=== PATIENT | female | born 1960 | race African-American/Black ===

== ENCOUNTER 2016-03-11 21:12 | Emergency (ER) | payer OTHER ==
[~2016-03-11] VITALS: Ht 160 cm; Wt 103.5 kg
[2016-03-11 21:15] VITALS: Ht 160 cm; Wt 103.5 kg
[2016-03-11] MEDS ORDERED: morphine 4 MG/ML VIAL IV STA (22:36)
[2016-03-11] MEDS ORDERED: SOD CHLORIDE 0.9% 1,000 ML IV STA (22:36)
[2016-03-11] MEDS ORDERED: ONDANSETRON 4 MG INJ IV STA (22:36)
[2016-03-11 23:03] LABS: BASOPHIL # 0.1 10^3/ul (0.0-0.1); EOSINOPHILS % 0.2 % (0.0-7.0); HEMATOCRIT 32.9 % (37.0-47.0); HEMOGLOBIN 9.9 g/dl (12.0-16.0); LYMPHOCYTES # 1.7 10^3/ul (0.8-2.9); LYMPHOCYTES % 17.8 % (15.0-51.0); MEAN CORPUSCULAR HEMOGLOBIN 16.8 pg (29.0-33.0); MEAN CORPUSCULAR HGB CONC 30.1 g/dl (32.0-37.0); MEAN CORPUSCULAR VOLUME 55.9 fl (82.0-101.0); MEAN PLATELET VOLUME 8.8 fl (7.4-10.4); MONOCYTE # 0.4 10^3/ul (0.3-0.9); MONOCYTES % 3.8 % (0.0-11.0); NEUTROPHIL # 7.3 10^3/ul (1.6-7.5); NEUTROPHILS % 77.2 % (39.0-77.0); PLATELET COUNT 543 10^3/UL (140-440); RED BLOOD COUNT 5.89 10^6/ul (4.20-5.40); RED CELL DISTRIBUTION WIDTH 24.6 % (11.5-14.5); UNCORRECTED WBC 9.5 10^3/ul (4.8-10.8); WHITE BLOOD COUNT 9.5 10^3/ul (4.8-10.8)
[2016-03-11 23:10] LABS: CHLORIDE 93 mmol/L (97-110)
[2016-03-11 23:11] LABS: ADD UMIC YES; ALBUMIN 4.6 g/dl (3.3-4.9); SODIUM 136 mmol/L (135-144); URINE BILIRUBIN (Dip) NEGATIVE (NEGATIVE); URINE BLOOD (Dip) 1+ (NEGATIVE); URINE COLOR LT. YELLOW (YELLOW); URINE GLUCOSE (Dip) >=1000 % (NEGATIVE); URINE KETONES (Dip) 3+ (NEGATIVE); URINE LEUKOCYTE ESTERASE (Dip) 1+ (NEGATIVE); URINE NITRITE (Dip) NEGATIVE (NEGATIVE); URINE TOTAL PROTEIN (Dip) 2+ (NEGATIVE); URINE UROBILINOGEN (Dip) 0.2 E.U./dL (0.1-1.0)
[2016-03-11 23:12] LABS: POTASSIUM 4.1 mmol/L (3.5-5.1)
[2016-03-11 23:14] LABS: ALANINE AMINOTRANSFERASE 24 IU/L (13-69); ALBUMIN/GLOBULIN RATIO 0.86; ALKALINE PHOSPHATASE 161 IU/L (42-121); ANION GAP 26 (8-16); ASPARTATE AMINO TRANSFERASE 26 IU/L (15-46); BILIRUBIN,INDIRECT 0.3 mg/dl (0-1.1); BILIRUBIN,TOTAL 0.3 mg/dl (0.2-1.3); BLOOD UREA NITROGEN 11 mg/dl (7-20); CARBON DIOXIDE 21 mmol/L (21-31); CREATININE 0.59 mg/dl (0.44-1.00); GLUCOSE 272 mg/dl (70-220); TOTAL PROTEIN 9.9 g/dl (6.1-8.1)
[2016-03-11 23:15] LABS: CALCIUM 10.3 mg/dl (8.4-10.2)
[2016-03-11 23:24] LABS: SQUAMOUS EPITHELIAL CELL,UR MANY; URINE RBCS 0-2 /HPF (0)
[2016-03-11 23:39] LABS: TROPONIN-I < 0.012 ng/ml (0.00-0.12)
[2016-03-11] MEDS: LIDOCAINE/MYLANTA 40 ML BTL PO ONE ×2 (23:43→23:47)
[2016-03-11 23:47] LABS: CONDITION 1; LH ANALYZER COMMENTS 1
--- NOTE | 2016-03-12 00:10 | RADRPT ---
PROCEDURE: CT Abdomen and pelvis without contrast. CLINICAL INDICATION: Abdominal pain. TECHNIQUE: CT scan of the abdomen and pelvis was performed on the [employer] LightSpeed 6 4 slice VCT scanner. Contiguous axial images using 2.5 mm slice thickness were obtained from the blu ng bases to the ischial tuberosities without intravenous contrast. Coronal and sagittal reformatted images were also obtained. Images were reviewed on the PACS workstation. Exam CTD/vol = 23.11 mGy. Total exam DLP = 1365.14 mGy-cm. COMPARISON: None. FINDINGS: Evaluation of the lung bases demonstrates no pleural or parenchymal disease. Abdomen: The liver is normal in size. There is no focal mass or dilatation of the biliary tree. T he gallbladder is not distended. The spleen, pancreas and bilateral adrenal glands are within malcolm l limits. Bilateral kidneys are normal in size with a cyst within the mid right kidney. There is n o radiopaque renal or ureteral calculus identified. There is no hydronephrosis or hydroureter. The re is no retroperitoneal adenopathy. The abdominal aorta is of normal caliber with minimal scattere d atherosclerotic calcifications. There is no abnormal bowel wall thickening or distension. There is no bowel obstruction or free air . A normal appendix is identified. There is no diverticulosis or diverticulitis. There is no asci krystin. Pelvis: The bladder is unremarkable. The uterus is enlarged with multiple fibroids, some which are calcified. There is an intrauterine device within the lower uterine segment. There is no signific ant pelvic adenopathy or free fluid. Evaluation of the osseous structures demonstrates no suspicious lytic or blastic lesion. IMPRESSION: Markedly enlarged uterus containing multiple large fibroids. Intrauterine device within the lower uterine segment. Right renal cyst. Minimal vascular calcifications reflective of atherosclerosis. .Silvano Edwards MD, MD Date Time Electronically viewed and signed by .Silvano Edwards MD, MD on 03/12/2016 00:10 .T/
[2016-03-12] MEDS ORDERED: ONDANSETRON 4 MG INJ IV STA (00:21)
[2016-03-12] MEDS ORDERED: HYDROmorphONE 1 MG/ML SYG IV STA (00:29)
[2016-03-12] MEDS ORDERED: LABETALOL HCL 20MG INJ IV ONE (00:30)
--- NOTE | 2016-03-12 00:44 | RADRPT ---
PROCEDURE: US Abdomen (right upper quadrant). CLINICAL INDICATION: Right upper quadrant pain TECHNIQUE: Multiple real-time longitudinal and transverse images of the right upper quadrant of th e abdomen were acquired utilizing a curved array transducer. Images were reviewed on a high-resoluti on PACS workstation. COMPARISON: CT and 03/11/2015 FINDINGS: The liver is top normal size and 17.25 cm and mildly echogenic without focal mass. The gallbladder is normal. There is no pericholecystic fluid or gallbladder wall thickening or gallstones. No intr a or extrahepatic biliary dilatation is seen. The common bile duct measures 3.2 mm in maximal dimen william. T pancreas is obscured by bowel gas. No free fluid is identified. Visualized abdominal aorta and IVC are unremarkable. The right kidney measures 12.97 cm in length. There is a 2.8 the component by 2.4 simple cyst in th e lower pole of the right kidney. Right kidney is otherwise normal appearance. There is no perineph maryjane fluid collection. No hydronephrosis, mass, or calculus is seen. IMPRESSION: 1. Mildly prominent fatty liver. 2. Normal examination gallbladder without cholelithiasis or evidence for biliary obstruction. 3. Pancreas obscured by bowel gas. 4. Right renal cyst. RPTAT: HMVK .Ti Salamanca MD, Date Time Electronically viewed and signed by .Ti Salamanca MD, on 03/12/2016 00:44 .K/
[2016-03-12] MEDS ORDERED: ONDA4TAB14 PO (01:06)
[2016-03-12] MEDS ORDERED: HYDR-902 PO (01:06)
--- NOTE | 2016-03-12 01:07 | ERD ---
ER Documentation Chief Complaint Date/Time DATE: 03/12/16 TIME: 01:07 Chief Complaint ABD PAIN, DIZZINESS, SOB +N/V INTERMITTENT 3DAYS WORSE TODAY HPI Patient is a 55-year-old female with diabetes who presents with abdominal pain. She said that she thought that it might of been food that she was eating that was causing her pain. She also had vomiting. She thought she may have had a "stomach flu". However when she woke up today the pain was worse and so she came to the emergency department. She said that it started on March 05. The pain was coming and going. It is diffuse abdominal pain. She does not currently have a primary doctor. ROS All systems reviewed and are negative except as per history of present illness. Medications Home Meds Active Scripts Ondansetron (Ondansetron Odt) 4 Mg Tab.rapdis, 4 MG PO Q6H Y for NAUSEA AND/OR VOMITING, #30 TAB Prov:KELLY FONTANA MD 03/12/16 Hydrocodone/Acetaminophen (Almo 10-325 Tablet) 1 Each Tablet, 1 TAB PO Q6H Y for PAIN, #7 TAB Prov:KELLY FONTANA MD 03/12/16 Allergies Allergies: Uncoded Allergies: PCN (Allergy, Unknown, 03/11/16) PMhx/Soc Medical and Surgical Hx: pt denies Medical Hx Anesthesia Reaction: No Hx Neurological Disorder: No Hx Respiratory Disorders: No Hx Cardiac Disorders: No Hx Psychiatric Problems: No Hx Miscellaneous Medical Probl: Yes (DM) Hx Alcohol Use: No Hx Substance Use: No Smoking Status: Unknown if ever smoked FmHx Family History: No diabetes Physical Exam Vitals Vital Signs Date Time Temp Pulse Resp B/P Pulse Ox O2 Delivery O2 Flow Rate FiO2 03/12/16 01:00 85 21 139/76 96 Room Air 03/12/16 00:25 98.3 96 17 184/83 100 Room Air 03/11/16 23:00 97.6 91 18 157/68 100 Room Air 03/11/16 21:15 97.6 110 18 194/83 100 Physical Exam Const: Moderate distress secondary to pain Head: Atraumatic Eyes: Normal Conjunctiva ENT: Normal External Ears, Nose and Mouth. Neck: Full range of motion..~ No meningismus. Resp: Clear to auscultation bilaterally Cardio: Regular rate and rhythm, no murmurs Abd: Diffuse tenderness to palpation without rebound or guarding Skin: No petechiae or rashes Back: No midline or flank tenderness Ext: No cyanosis, or edema Neur: Awake and alert Psych: Normal Mood and Affect Result Diagram: 03/11/16222903/11/162229 Results 24 hrs Laboratory Tests Test 03/11/16 22:30 Alanine Aminotransferase (ALT/SGPT) 24IU/L Albumin 4.6g/dl Albumin/Globulin Ratio 0.86 Alkaline Phosphatase 161IU/L Anion Gap 26 Aspartate Amino Transf (AST/SGOT) 26IU/L Basophils # 0.110^3/ul Basophils % 1.0% Blood Morphology Comment Blood Urea Nitrogen 11mg/dl Calcium Level 10.3mg/dl Carbon Dioxide Level 21mmol/L Chloride Level 93mmol/L Creatinine 0.59mg/dl Direct Bilirubin 0.00mg/dl Eosinophils # 0.010^3/ul Eosinophils % 0.2% Globulin 5.30g/dl Glucose Level 272mg/dl Hematocrit 32.9% Hemoglobin 9.9g/dl Indirect Bilirubin 0.3mg/dl Lipase 76U/L Lymphocytes # 1.710^3/ul Lymphocytes % 17.8% Mean Corpuscular Hemoglobin 16.8pg Mean Corpuscular Hemoglobin Concent 30.1g/dl Mean Corpuscular Volume 55.9fl Mean Platelet Volume 8.8fl Monocytes # 0.410^3/ul Monocytes % 3.8% Neutrophils # 7.310^3/ul Neutrophils % 77.2% Nucleated Red Blood Cells # 0.010^3/ul Nucleated Red Blood Cells % 0.0/100WBC Platelet Count 53930^3/UL Potassium Level 4.1mmol/L Red Blood Count 5.8910^6/ul Red Cell Distribution Width 24.6% Sodium Level 136mmol/L Total Bilirubin 0.3mg/dl Total Protein 9.9g/dl Troponin I < 0.012ng/ml Urine Bilirubin NEGATIVE Urine Clarity CLOUDY Urine Color LT. YELLOW Urine Glucose >=1000% Urine Hemoglobin 1+ Urine Ketones 3+ Urine Leukocyte Esterase 1+ Urine Microscopic RBC 0-2/HPF Urine Microscopic WBC 0-2/HPF Urine Nitrite NEGATIVE Urine Specific [place] 1.015 Urine Squamous Epithelial Cells MANY Urine Total Protein 2+ Urine Urobilinogen 0.2 E.U./dL Urine pH 6.0 White Blood Count 9.510^3/ul Current Medications Medications (Trade) Dose Ordered Sig/Quiana Route PRN Reason Start Time Stop Time Status Last Admin Dose Admin Sodium Chloride (NS) 1,000 ml @ 1,000 mls/hr Q1H STAT IV 03/11/16 22:36 03/11/16 23:35 DC 03/11/16 22:42 Morphine Sulfate (morphine) 4 mg ONCE STAT IV 03/11/16 22:36 03/11/16 22:37 DC 03/11/16 22:42 Ondansetron HCl (Zofran Inj) 4 mg ONCE STAT IV 03/11/16 22:36 03/11/16 22:37 DC 03/11/16 22:41 Miscellaneous Medication (Gi Cocktail (2)) 40 ml ONCE ONCE PO 03/12/16 00:00 03/12/16 00:01 DC 03/11/16 23:47 Ondansetron HCl (Zofran Inj) 4 mg ONCE STAT IV 03/12/16 00:21 03/12/16 00:22 DC 03/12/16 00:34 Labetalol HCl (Labetalol) 20 mg ONCE ONCE IV 03/12/16 00:30 03/12/16 00:31 DC 03/12/16 00:34 Hydromorphone HCl (Dilaudid) 1 mg ONCE STAT IV 03/12/16 00:29 03/12/16 00:30 DC 03/12/16 00:34 Procedures/MDM EKG read by me: Rate/Rhythm: Regular rate and rhythm at a rate of 92 Intervals: Normal Impression: No evidence of ischemia or arrhythmia CT scan of the abdomen and pelvis shows fibroids but no signs of surgical process at this point per radiology. Gallbladder ultrasound shows no signs of cholecystitis per radiology. Patient is a 55-year-old female who presents with abdominal pain and vomiting. She was found to have anemia with a hemoglobin of 9.9 his but does not require transfusion. She has hyperglycemia but no signs of diabetic ketoacidosis. I believe she was dehydrated which is causing her ketones in the urine. She has no sign of urine infection. She has no cholecystitis, pancreatitis, appendicitis, or bowel obstruction. She does have significant fibroid seen on CT scan and this may be a cause of her pain and I did recommend outpatient follow-up with gynecology and I will give her information for Dr. Iyer. She should follow-up tomorrow for reevaluation with a primary doctor and I gave her information for the local clinics. She can return sooner for any worsening symptoms. She was given copies of her laboratory studies and imaging test prior to discharge. She will be given a prescription for Almo and Zofran for symptomatic relief. Departure Diagnosis: Primary Impression: Fibroids Uterine leiomyoma location: unspecified location Qualified Code: D25.9 - Uterine leiomyoma, unspecified location Additional Impression: Abdominal pain Abdominal location: generalized Qualified Code: R10.84 - Generalized abdominal pain Condition: Fair Patient Instructions: Abdominal Pain, What Are Fibroids? Referrals: EFRAIN IYER MD [facility] YOU HAVE RECEIVED A MEDICAL SCREENING EXAM AND THE RESULTS INDICATE THAT YOU DO NOT HAVE A CONDITION THAT REQUIRES URGENT TREATMENT IN THE EMERGENCY DEPARTMENT. FURTHER EVALUATION AND TREATMENT OF YOUR CONDITION CAN WAIT UNTIL YOU ARE SEEN IN YOUR DOCTORS OFFICE WITHIN THE NEXT 1-2 DAYS. IT IS YOUR RESPONSIBILITY TO MAKE AN APPOINTMENT FOR FOLOW-UP CARE. IF YOU HAVE A PRIMARY DOCTOR --you should call your primary doctor and schedule an appointment IF YOU DO NOT HAVE A PRIMARY DOCTOR YOU CAN CALL OUR PHYSICIAN REFERRAL HOTLINE AT IF YOU CAN NOT AFFORD TO SEE A PHYSICIAN YOU CAN CHOSE FROM THE FOLLOWING [facility] [address] [place] [facility] [address] [place] [facility] [facility] [address] [facility] [address] [facility] [address] [facility] [facility] [address] Additional Instructions: FOLLOW UP WITH YOUR PRIMARY CARE PHYSICIAN TOMORROW.Return to this facility if you are not improving as expected. KELLY FONTANA MD Mar 12, 2016 01:07
[2016-03-12 01:27] VITALS: BP 144/73; PULSE 87; RESP 19; TEMP 98.1
== END 2016-03-12 01:27 | disposition home or self-care (01) ==
LOC: E/R 21:12
DX: D25.9 Leiomyoma of uterus, unspecified (principal); R10.84 Generalized abdominal pain; E11.9 Type 2 diabetes mellitus without complications; R11.10 Vomiting, unspecified
CPT/HCPCS: 36415; 74176; 76705; 80053; 81001; 81003; 83690; 84484; 85025; 93005; 96374; 96375; 96376; 99285; J1170; J2270; J2405; J7030

== ENCOUNTER 2018-03-01 00:24 | Observation (INO) | END 2018-03-03 17:01 | disposition home or self-care (01) ==